=== PATIENT | female | born 1985 | race Asian ===

== ENCOUNTER 2019-06-24 16:30 | Inpatient (IN) | payer OTHER ==
[~2019-06-24] VITALS: Ht 162.6 cm; Wt 3.6 kg
[~2019-06-24 16:30] MED LIST: BUCALSEP SPRAY30 ML MM; GILTUSS TR TAB1 EACH PO; ZYRTEC10 M3 PO
[2019-07-13] MEDS ORDERED: PRENATABS RX T1 EACH PO (10:11)
[2019-07-16] MEDS ORDERED: KETO10TA2 PO (08:21)
[2019-07-16] MEDS ORDERED: PERCOCET 5-3251 EACH PO (08:23)
== END 2019-07-16 12:16 | disposition home or self-care (01) | DRG 788 ==
LOC: OB/GYN 07-13 09:53 → LDR 07-13 09:53 → OB/GYN 07-13 16:42
PROVIDERS: ADMIT Obstetrics & Gynecology
PROC: 4A1HXCZ Monitoring of Products of Conception, Cardiac Rate, External Approach (ICD-10-PCS; 2019-07-13)
PROC: 10D00Z1 Extraction of Products of Conception, Low, Open Approach (ICD-10-PCS; principal; 2019-07-13 15:30)
DX: O76 Abnormality in fetal heart rate and rhythm complicating labor and delivery (principal); Z3A.38 38 weeks gestation of pregnancy; Z37.0 Single live birth